=== PATIENT | male | born 1970 | race Caucasian/White ===

== ENCOUNTER 2019-10-07 11:01 | Emergency (ER) | payer BC ==
[~2019-10-07] VITALS: Ht 180.3 cm; Wt 80.0 kg
[2019-10-07 11:05] VITALS: BP 129/77
== END 2019-10-07 11:43 | disposition home or self-care (01) ==
LOC: EMS 11:05
DX: Z20.828 Contact with and (suspected) exposure to other viral communicable diseases (principal)
CPT/HCPCS: 87635